=== PATIENT | male | born 1985 | race Caucasian/White ===

== ENCOUNTER 2023-10-25 16:30 | Outpatient (RCR) | payer BC, SELFPAY ==
--- NOTE | 2023-09-27 15:59 | HP.PTEVAL_ITS ---
Patient's Visit Information Visit Information Visit Information: BALDEMAR EWING is a 38 year old M referred to Physical Therapy by Dr. Farooq Osborne MD with a diagnosis of Lumbago with sciatica (L4 suspected). Date of Evaluation: 09/27/23 Physical Therapist: MEGAN Leiva Visit Plan Frequency: 2x /Week Duration: 2 Months Plan: 2X/ week for 8 weeks for centralization of sx using extension principle, posture exercises, neutral spine core stability and progress to proper lifting mechanics with HEP HEP: press ups with pt sag Subjective Subjective: thinks that he has a bulging disc. Pain down his R leg when he sits. It has been a little better sitting in the mornings. Car ride to work is bad and then it gets better when he stands up for a little bit. He has pain into R calf. It has been off and on over the last few months and then took a long car ride on vacation and now it is back. Dr Osborne said to come here for PT. He is not sure what started it. He thinks that it was over the summer and not sure if it was from working out or what and it came on more gradual. He is careful at work but works hard at keeping good posture. X-rays were normal. He gets a sting when he goes from sit to stand. He stands all day at work. He did heavy weight lifting for a few months now. He has no weakness in his R leg, just pain. Pain Back pain: Pain Intensity (Out of 10): 0 R leg pain: Pain Intensity (Out of 10): 0 Objective Objective: Gait: Walks with normal gait pattern LE MMT: R hip flex 10 and L 11.2 R knee ext 29 and L 31 R knee flex 14.3 and L 11.9 R hip abd 15.6 and L 16 Trunk AROM: flexion 25%, Ext 50%, SB B 75% and Rot B 75% Walk on heels and toes: pt is able to walk on heels and toes SLUMP R positive and L negative + SLR on the R and negative on the L Prone lying helps to decrease pain in his leg and starts to go into his back. Prone to Prone press up with belly sag X 10.... no pain except at first he felt it in his R calf. Seated posture with towel roll has been demonstrated with the patient Balance/Special Test Scores Oswestry Low Back Score: 11 Goals Goal 1:: I HEP Goal Time Frame: 6-8 Weeks Goal 2:: Abolish R leg and back pain Goal Time Frame: 6-8 Weeks Goal 3:: Sit with upright posture Goal Time Frame: 6-8 Weeks Goal 4:: Be able to return to lifting with proper form without pain Goal Time Frame: 6-8 Weeks Rehabilitation Potential Rehabilitation Potential: Excellent Anticipated Interventions Patient/Client Instruction: Educate patient on: Condition and Plan of Care For the Purpose of:: To decrease pain, To decrease swelling/inflammation, To increase ROM, To improve nutrient delivery to tissue, To improve muscle performance and motor function, To improve ability to perform ADL's, To increase tolerance to activity/condition/position, To improve performance and independence with ADL's, To decrease level of supervision to perform tasks, To improve ability of physical actions for home/community/work/leisure, To improve health of tissue, To decrease soft tissue restriction and To increase flexibility/ROM Therapeutic Exercise to Include: Strength training, Power training, Endurance training, Body mechanics, Postural training, Flexibilty training, Gait and locomotor training, Neuromotor development, Active ROM, Dynamic Lumbar Stabilization, Brandie Exercises and Scapular Strength/Stabilization For the Purpose of:: To decrease pain, To decrease swelling/inflammation, To increase ROM, To improve nutrient delivery to tissue, To improve muscle performance and motor function, To improve ability to perform ADL's, To increase tolerance to activity/condition/position, To improve performance and independence with ADL's, To decrease level of supervision to perform tasks, To improve ability of physical actions for home/community/work/leisure, To improve gait and locomotor functions, To improve health of tissue, To decrease soft tissue restriction and To increase flexibility/ROM Manual Therapy Techniques to Include: Mobilization, Passive ROM and Soft tissue mobilization For the Purpose of:: To decrease pain, To decrease swelling/inflammation, To increase ROM, To improve nutrient delivery to tissue, To increase oxygenation perfusion, To improve muscle performance and motor function, To improve ability to perform ADL's, To increase tolerance to activity/condition/position, To decrease level of supervision to perform tasks, To improve ability of physical actions for home/community/work/leisure, To improve gait and locomotor functions, To improve health of tissue, To decrease soft tissue restriction and To increase flexibility/ROM Text: Thank you for the opportunity to evaluate your patient. For Medicare and Medicare HMO plans, please review the plan of care and approve it. It will need to be FAXED BACK to us at [phone] for Medicare purposes. For Medicare only, by signing this I certify the plan of care. Please let me know if there are questions or concerns regarding this plan of care. Physician Signature: Date:
--- NOTE | 2024-02-14 12:33 | HP.PT.NRP(2) ---
Patient Information Patient Information: BALDEMAR EWING was seen in my office for initial evaluation on . The following Plan of Care was established for this patient: Last Seen Last Seen: This patient was last seen in our office . Pertinent comments regarding their Physical therapy will appear below: At this point I will be discontinuing this patient from physical therapy. I would be happy to see this patient again in the future if found appropriate by the physician. Thank you! Nancie Baires, MPT
== END 2023-10-25 19:00 | disposition home or self-care (01) ==
LOC: PT 16:30
PROVIDERS: PCP Family Medicine; Referring Provider Family Medicine; Visit Provider Family Medicine
DX: M54.41 Lumbago with sciatica, right side (principal)
CPT/HCPCS: 97110; 97161

== ENCOUNTER → 2023-12-20 | Outpatient (CLI) | payer BC, SELFPAY ==
--- NOTE | 2023-12-20 16:24 | MRI_ITS ---
STUDY: MRI LUMBAR SPINE WITHOUT CONTRAST REASON FOR EXAM: Male, 38 years old. RADICULOPATHY, LUMBAGO, RT SCIATICA TECHNIQUE: Standardized fat and water weighted pulse sequences were obtained in the sagittal and axial planes. COMPARISON: None FINDINGS: T12-L1: Normal endplates. Normal disc height, hydration and morphology. Normal bilateral facet joints. Normal central canal and bilateral lateral recesses. Normal bilateral intervertebral neural foramina. Normal lumbar lordosis. There is no substantial scoliosis. Normal conus medullaris that terminates at the L1-2. L1-2: Normal endplates. Normal disc height, hydration and morphology. Normal bilateral facet joints. Normal central canal and bilateral lateral recesses. Normal bilateral intervertebral neural foramina. L2-3: Normal endplates. Normal disc height, hydration and morphology. Normal bilateral facet joints. Normal central canal and bilateral lateral recesses. Normal bilateral intervertebral neural foramina. L3-4: Normal endplates. Normal disc height, hydration and morphology. Normal bilateral facet joints. Normal central canal and bilateral lateral recesses. Normal bilateral intervertebral neural foramina. L4-5: Normal endplates. Normal disc height, hydration and morphology. Hypertrophic bilateral facet joints. Normal central canal and bilateral lateral recesses. Moderate narrowing bilateral intervertebral neural foramina. L5-S1: Moderate right disc extrusion effaces the lateral recess and neural foramen. There is impingement upon the S1 nerve root on the right. Central canal and left neural foramen patent. Normal visualized sacral ala. Normal visualized paraspinous soft tissue structures. MRI/Spine Lumbar (Routine) IMPRESSION: Moderate right L5-S1 disc extrusion with impingement on the S1 nerve root Electronically Signed: Christian Rivera MD at 0:01 EST ,
== END | disposition home or self-care (01) ==
LOC: MRI 16:20
PROVIDERS: PCP Family Medicine; Referring Provider Family Medicine; Visit Provider Family Medicine
DX: M54.41 Lumbago with sciatica, right side (principal)
CPT/HCPCS: 72148

== ENCOUNTER → 2024-08-15 | Outpatient (CLI) | payer BC, SELFPAY ==
[2024-08-15 15:58] LABS: Cholesterol 126 mg/dL (200); High Density Lipoprotein 56 mg/dL; PSA,Total - Annual Screen 1.22 ng/mL (0.00-4.00); Triglycerides 38 mg/dL; Very Low Density Lipoprotein 8 mg/dL (5-40)
== END | disposition home or self-care (01) ==
LOC: MFPLAB 12:00
PROVIDERS: PCP Family Medicine; Visit Provider Family Medicine
DX: Z13.220 Encounter for screening for lipoid disorders (principal); Z12.5 Encounter for screening for malignant neoplasm of prostate; Z80.42 Family history of malignant neoplasm of prostate
CPT/HCPCS: 36415; 80061; 84153; G0103

== ENCOUNTER → 2025-09-02 | Outpatient (CLI) | payer BC, SELFPAY ==
[2025-09-02 12:23] LABS: Hematocrit 45.2 % (40-54); Hemoglobin 14.9 g/dL (13.0-16.5); Immature Granulocytes Count 0.010 X10^3/uL (0.0-0.0); Mean Corp Hgb Conc 33.0 g/dL (32-36); Mean Corpuscular Volume 85.3 fL (80-94); Mean Platelet Vol. 9.9 fl (6.2-12.0); NRBC Flagged by Analyzer 0 % (0-5); Platelet Count 231 K/mm3 (150-450); RBC Distribution Width CV 12.9 % (11.6-14.6); RBC Distribution Width SD 39.8 fl (35.1-43.9); Red Blood Count 5.30 M/mm3 (4.6-6.2); White Blood Count 6.3 K/mm3 (4.4-11.0)
[2025-09-02 13:04] LABS: AST(SGOT) 25 U/L (<=37); Alanine Aminotransfer ALT/SGPT 32 U/L (<=46); Albumin, Serum 4.6 g/dL (3.5-5.0); Alkaline Phosphatase 43 U/L (40-129); Anion Gap 12 (5-15); BUN 13 mg/dL (4-19); BUN/Creat Ratio 16.8 RATIO (10-20); Calcium,Total 9.4 mg/dL (7.6-11.0); Carbon Dioxide 24.8 mmol/L (21.0-32.0); Chloride 105 mmol/L (98-108); Cholesterol 138 mg/dL (<=200); Globulin 3.0 g/dL (2.2-4.2); Glucose 85 mg/dL (70-99); Low Density Lipoprotein Calc. 67 mg/dL; PSA,Total- Diagnostic 1.04 ng/mL (0.00-4.00); Potassium 4.1 mmol/L (3.3-5.1); Triglycerides 44 mg/dL; Very Low Density Lipoprotein 9 mg/dL (5-40); cholesterol:hdl ratio screen 2.26
== END | disposition home or self-care (01) ==
LOC: MTLAB 10:33
PROVIDERS: PCP Family Medicine; Referring Provider Family Medicine; Visit Provider Family Medicine
DX: Z13.220 Encounter for screening for lipoid disorders (principal); K92.9 Disease of digestive system, unspecified; G47.00 Insomnia, unspecified; Z80.42 Family history of malignant neoplasm of prostate
CPT/HCPCS: 36415; 80053; 80061; 84153; 85025